=== PATIENT | female | born 2005 | race Caucasian/White ===

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

== ENCOUNTER → 2025-05-15 | Outpatient (CLI) | payer BC ==
[~2025-05-15] MED LIST changes: +NITR100CA PO; +Triamcinolone A15 G3 TOP
== END ==
LOC: LAB SHORT 12:52 → LAB 12:52
DX: N39.0 Urinary tract infection, site not specified (principal)
CPT/HCPCS: 87086